=== PATIENT | female | born 1995 ===

== ENCOUNTER 2019-03-06 08:42 | Outpatient (CLI) | payer SELFPAY ==
--- NOTE | 2019-03-06 13:50 | Ultrasound Report ---
Reason: TEST POSITIVE Procedure Date: 03/06/2019 Accession Number: [id number] / [id number] Procedure: US - OB 14+ Weeks CPT Code: FULL RESULT: EXAM: LIMITED OBSTETRICAL ULTRASOUND EARLY SECOND TRIMESTER EXAM DATE: 03/06/2019 10:40 AM. CLINICAL HISTORY: TEST POSITIVE. COMPARISON: None. TECHNIQUE: Real-time sonographic evaluation of the fetus performed by the product support consultant. Multiple outside sales representative insurance static images were saved for review. DATING: Established EGA 16 weeks 1 day with DELORIS 11/27/2018 based on a reported last menstrual period of probably 11/13/2018. EGA 17 weeks 4 days with DELORIS 08/10/2019 based on the current ultrasound. GENERAL EVALUATION Gonzalez . Cardiac activity: 144 bpm. movement: Visualized. Presentation: Variable Placenta: Posterior position. No evidence for previa. Amniotic fluid: Subjectively normal. MVP 4.0 cm. BIOMETRY Bi-Parietal Diameter (BPD): 3.8 cm, 17 weeks 4 days Head Circumference (HC): 14.4 cm, 17 weeks 3 days Abdominal Circumference (AC): 12.3 cm, 17 weeks 6 days Femur Length (FL): 2.5 cm, 17 weeks 4 days Estimated Weight: 208 grams, 97th percentile for 16 weeks 1 day. ANATOMY Within the limits of early second trimester ultrasound, no anatomic abnormality is detected. The profile/nasal bone, visualized intracranial structures, nuchal region, anterior abdominal wall, cord insert region, stomach, and bladder are visualized and appear normal for gestational age. Cardiac situs is normal. Both upper and lower extremities are visualized. MATERNAL STRUCTURES Uterus: Unremarkable. Cervix: Long and closed. Right ovary/adnexa: Unremarkable. Left ovary/adnexa: Unremarkable. Free fluid: None. IMPRESSION: 1. Gonzalez live intrauterine with gestational age 16 weeks 1 day based on LMP. 2. size is high for current working due date. Consider redating depending on the clinical scenario. 3. Normal early second trimester anatomy. No anatomic abnormalities are seen at this time. Note: Detailed anatomic survey at 18-22 weeks is recommended for all fetuses evaluated prior to 18 weeks, as some structural abnormalities may be inapparent at earlier gestational ages. [facility]
== END 2019-03-06 08:43 | disposition home or self-care (01) ==
LOC: DI 08:42
PROVIDERS: ATTEND Obstetrics & Gynecology
DX: Z32.01 Encounter for pregnancy test, result positive (principal)
CPT/HCPCS: 76805